=== PATIENT | female | born 2000 | race Two or more races ===

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

== ENCOUNTER 2019-10-07 21:35 | Observation (INO) | payer MEDICAID ==
[~2019-10-07] VITALS: Ht 154.9 cm; Wt 79.4 kg
[~2019-10-07 21:35] MED LIST: PREN-153 PO
[2019-10-08] MEDS ORDERED: BETAMETHASONE ACET (6MG/ML) 5ML VIAL IM SCH (10:00)
== END 2019-10-07 23:55 | disposition home or self-care (01) | DRG 955 ==
LOC: LDRP 21:35
PROVIDERS: ADMIT Specialist; ATTEND Specialist
DX: O09.212 Supervision of pregnancy with history of pre-term labor, second trimester (principal); Z3A.23 23 weeks gestation of pregnancy
CPT/HCPCS: 59025; 76805; 81002; 84112; G0378; 96361; 96366

== ENCOUNTER 2019-10-28 18:04 | Observation (INO) | payer MEDICAID ==
[~2019-10-28] VITALS: Ht 154.9 cm; Wt 83.9 kg
== END 2019-10-28 19:30 | disposition home or self-care (01) | DRG 566 ==
LOC: LDRP 18:04
PROVIDERS: ADMIT Obstetrics & Gynecology; ATTEND Obstetrics & Gynecology
DX: O99.89 Other specified diseases and conditions complicating pregnancy, childbirth and the puerperium (principal); M54.5 Low back pain; Z3A.36 36 weeks gestation of pregnancy; W10.9XXA Fall (on) (from) unspecified stairs and steps, initial encounter; Y92.009 Unspecified place in unspecified non-institutional (private) residence as the place of occurrence of the external cause
CPT/HCPCS: 59025; 76815; 81002; G0378

== ENCOUNTER 2019-11-13 21:01 | Emergency (ER) | payer MEDICAID ==
[~2019-11-13] VITALS: Ht 154.9 cm; Wt 83.9 kg
[2019-11-13] MEDS: ONDANSETRON ODT 4 MG TAB PO ONE (22:58)
[2019-11-13] MEDS: HYDROmorphone HCL 2 MG/ML VL IV ONE (22:59)
[2019-11-14] MEDS: ETOMIDATE (2MG/ML) 20ML VIAL IV ONE ×2 (00:53→01:05)
[2019-11-14 02:00] VITALS: BP 102/58
== END 2019-11-14 02:05 | disposition home or self-care (01) ==
LOC: ER 21:01 → EDBD 21:01 → ER 11-14 02:05
DX: O26.892 Other specified pregnancy related conditions, second trimester (principal); S43.005A Unspecified dislocation of left shoulder joint, initial encounter; Z3A.28 28 weeks gestation of pregnancy; X58.XXXA Exposure to other specified factors, initial encounter; Y93.89 Activity, other specified; Y92.89 Other specified places as the place of occurrence of the external cause; Y99.8 Other external cause status
CPT/HCPCS: 23650; 73030; 96374; 99152; 99153; 99285; J1170; Q0162

== ENCOUNTER 2019-12-01 08:31 | Observation (INO) | payer MEDICAID ==
[2019-12-01] MEDS ORDERED: HYDR250I6 IM (09:26)
== END 2019-12-01 10:35 | disposition home or self-care (01) | DRG 563 ==
LOC: LDRP 08:31
PROVIDERS: ADMIT Specialist; ATTEND Specialist
DX: O60.03 Preterm labor without delivery, third trimester (principal); Z3A.36 36 weeks gestation of pregnancy
CPT/HCPCS: 59025; 76815; 81002; G0378

== ENCOUNTER 2019-12-14 09:50 | Observation (INO) | payer MEDICAID ==
[~2019-12-14 09:50] MED LIST changes: +HYDR250I6 IM
== END 2019-12-14 10:35 | disposition home or self-care (01) | DRG 563 ==
LOC: LDRP 09:50
PROVIDERS: ADMIT Obstetrics & Gynecology; ATTEND Obstetrics & Gynecology
DX: O60.03 Preterm labor without delivery, third trimester (principal); Z3A.32 32 weeks gestation of pregnancy
CPT/HCPCS: 59025; 81002; G0378

== ENCOUNTER 2019-12-21 08:40 | Observation (INO) | payer MEDICAID ==
[2019-12-21 10:05] LABS: Alcohol, Urine < 3.0 mg/dL (0-5); Amphetamine Screen, Urine NEGATIVE (NEGATIVE); Barbiturate Scree,Urine NEGATIVE (NEGATIVE); Benzodiazephine Screen, Urine NEGATIVE (NEGATIVE); Cannabinoid Screen, Urine POSITIVE (NEGATIVE); Cocaine Screen, Urine NEGATIVE (NEGATIVE); Opiate Scree,Urine NEGATIVE (NEGATIVE); Phencyclidine Screen, Urine NEGATIVE (NEGATIVE)
== END 2019-12-21 09:40 | disposition home or self-care (01) | DRG 563 ==
LOC: LDRP 08:40
PROVIDERS: ADMIT Specialist; ATTEND Specialist
DX: O60.03 Preterm labor without delivery, third trimester (principal); Z3A.33 33 weeks gestation of pregnancy; Z91.040 Latex allergy status
CPT/HCPCS: 59025; 80307; 81002; G0378

== ENCOUNTER 2019-12-28 09:05 | Observation (INO) | payer MEDICAID | END 2019-12-28 09:50 | disposition home or self-care (01) | DRG 563 | LOC: LDRP 09:05 | PROVIDERS: ADMIT Obstetrics & Gynecology; ATTEND Obstetrics & Gynecology | DX: O60.03 Preterm labor without delivery, third trimester (principal); Z3A.34 34 weeks gestation of pregnancy; Z91.040 Latex allergy status | CPT/HCPCS: 59025; 81002; G0378 ==

== ENCOUNTER 2020-01-15 01:55 | Observation (INO) | payer MEDICAID ==
[~2020-01-15] VITALS: Ht 154.9 cm; Wt 68.0 kg
== END 2020-01-15 03:19 | disposition home or self-care (01) | DRG 566 ==
LOC: LDRP 01:55
PROVIDERS: ADMIT Specialist; ATTEND Specialist
DX: O62.9 Abnormality of forces of labor, unspecified (principal); Z3A.37 37 weeks gestation of pregnancy; Z91.040 Latex allergy status
CPT/HCPCS: 59025; 81002; 84112; G0378

== ENCOUNTER 2020-01-17 13:50 | Inpatient (IN) | payer MEDICAID ==
[~2020-01-17] VITALS: Ht 157.5 cm; Wt 90.3 kg
[2020-01-17] MEDS ORDERED: LACT. RINGERS/OXYTOCIN 20UNITS 1,000 ML IV SCH (14:29)
[2020-01-17] MEDS ORDERED: LACTATED RINGER'S 1,000 ML IV SCH (14:29)
[2020-01-17] MEDS ORDERED: PHISODERM TOP SOLN 240ML BTL TOP PRN (14:30)
[2020-01-17] MEDS ORDERED: LIDOCAINE 2%HCL (LOCAL ANESTH.) INJ 20ML MDV ID ONE (14:30)
[2020-01-17] MEDS ORDERED: NALBUPHINE HCL 10 MG/1ml INJECTION IV PRN (14:30)
[2020-01-17] MEDS ORDERED: DERMOPLAST 60ML BOTTLE TOP PRN (14:30)
[2020-01-17] MEDS ORDERED: WITCH HAZEL-GLYCERIN PAD TOP PRN (14:30)
[2020-01-17] MEDS ORDERED: BUTORPHANOL TARTRATE 2 MG/1 ML VIAL IV ONE (15:15)
[2020-01-17] MEDS ORDERED: PROMETHAZINE HCL 25 MG/ML 1ML IV PRN (15:15)
[2020-01-17 15:46] LABS: Basophils # (auto) 0 10 ^3/uL (0-0.2); Basophils % (auto) 0.2 % (0.0-2.0); Eosinophils # (auto) 0.1 10 ^3/uL (0-0.8); Eosinophils % (auto) 0.5 % (0.0-7.0); Hematocrit 39.2 % (36.0-46.0); Lymphocytes # (auto) 1.7 10 ^3/uL (0.4-5.4); Lymphocytes % (auto) 14.4 % (10.0-50.0); Mean Corpuscular Hemoglobin 27.7 pg (28.0-32.0); Mean Corpuscular Hgb Conc. 33.2 g/dL (32.0-36.0); Mean Corpuscular Volume 83.7 fL (80.0-100.0); Monocytes # (auto) 0.6 10 ^3/uL (0-1.3); Neutrophils # (auto) 9.2 10 ^3/uL (1.6-8.6); Neutrophils % (auto) 79.9 % (37.0-80.0); Platelet Count (auto) 219 10^3/uL (140-450); Red Blood Cells 4.69 10^6/uL (4.0-5.20); White Blood Cell 11.5 10^3/uL (4.4-10.8)
[2020-01-17 15:54] LABS: Urine Bacteria FEW /hpf (None Seen); Urine Blood Negative /uL (Negative); Urine Specific Gravity 1.009 (1.001-1.035); Urine WBC 12 /hpf (0 - 5)
[2020-01-17] MEDS ORDERED: METHYLERGONOVINE MALEATE 0.2 MG/ML AMP IM ONE (16:00)
[2020-01-17 16:01] LABS: Calcium 9.2 mg/dL (8.5-10.1); INR 0.92 (0.9-1.15); Partial Thromboplastin Time 26.3 sec (23.64-32.05); Potassium 3.8 mmol/L (3.5-5.1)
[2020-01-17 16:02] LABS: Alcohol, Urine < 3.0 mg/dL (0-5); Amphetamine Screen, Urine NEGATIVE (NEGATIVE); Barbiturate Scree,Urine NEGATIVE (NEGATIVE); Benzodiazephine Screen, Urine NEGATIVE (NEGATIVE); Cannabinoid Screen, Urine NEGATIVE (NEGATIVE); Cocaine Screen, Urine NEGATIVE (NEGATIVE); Opiate Scree,Urine NEGATIVE (NEGATIVE); Phencyclidine Screen, Urine NEGATIVE (NEGATIVE)
[2020-01-17 16:06] LABS: BUN/Creatinine Ratio 16.1; Bilirubin, Total 0.1 mg/dL (0.2-1.0); Total Protein 7.8 g/dL (6.4-8.2); Uric Acid 3.2 mg/dL (2.6-6.0)
--- NOTE | 2020-01-17 16:31 | NUR ---
Teaching: Reviewed information in [facility] booklet with patient. Discussed benefits of and risks associated with not . Discussed different positions, proper latch, feeding cues, and baby-led . Provided information of medication side effects related to . All questions and concerns addressed at this time. Patient verbalized understanding of information.
--- NOTE | 2020-01-17 18:10 | NUR ---
Ambulation: Patient OOB with standby assistance by RN. Patient ambulated to bathroom with steady gait. Patient able to void 700ml without difficulty. [facility] teaching provided with returned demonstration by patient. Clean gown provided and bed linen changed. Patient ambulated back to bed with steady gait and no distress noted.
[2020-01-17 19:08] VITALS: BP 116/74
[2020-01-17] MEDS: IBUPROFEN 600 MG TAB PO PRN (20:07)
[2020-01-17 23:14] VITALS: BP 111/69
[2020-01-18 03:13] VITALS: BP 99/46
[2020-01-18 07:00] VITALS: BP 94/51
[2020-01-18] MEDS: IBUPROFEN 600 MG TAB PO PRN (07:46)
[2020-01-18 10:35] VITALS: BP 109/55
[2020-01-18] MEDS: ACETAMINOPHEN 325 MG TAB PO PRN ×3 (10:46→22:28)
[2020-01-18 15:00] VITALS: BP 113/57
--- NOTE | 2020-01-18 15:07 | NUR ---
Received Social Service Consult for having a hx of Pos screens for THC. Neither Mom or baby was positive for drugs during the . The pt states she has not used drugs since high school and does not intend to use. Gave pt list of resources for Substance abuse.
[2020-01-18 18:30] VITALS: BP 113/56
[2020-01-18 23:00] VITALS: BP 113/64
[2020-01-19 03:00] VITALS: BP 114/60
[2020-01-19 05:07] LABS: RPR Non Reactive (Non Reactive)
[2020-01-19 07:00] VITALS: BP 96/55
--- NOTE | 2020-01-19 10:45 | NUR ---
Discharge: Discharge instructions given to mother of baby as ordered. Copies of and hearing screening, along with vaccination record given to mother. Mother encouraged to follow up with [facility] Researcher of choice and to give envelope with infants information to c unix developer at 1st office visit. All questions and concerns addressed. Mother of baby verbalized understanding and agreed to comply. Mother of baby encouraged to prepare for departure and notify RN ready to leave room for ID band removal/verification and car seat check.
--- NOTE | 2020-01-19 10:45 | NUR ---
Discharge: Discharge instructions given as ordered. Pt encouraged to follow up with PROCESS COACH as instructed. All questions and concerns addressed. Patient verbalized understanding. Medication reconciliation completed and copy given to patient. All required/requested vaccines given and copies of vaccinations given to patient. Patient encouraged to prepare to depart unit.
[2020-01-19 11:00] VITALS: BP 105/62
== END 2020-01-19 11:18 | disposition home or self-care (01) | DRG 560 ==
LOC: LDRP 13:50
PROVIDERS: ADMIT Obstetrics & Gynecology; ATTEND Obstetrics & Gynecology
PROC: 10E0XZZ Delivery of Products of Conception, External Approach (ICD-10-PCS; principal; 2020-01-17)
PROC: 0HQ9XZZ Repair Perineum Skin, External Approach (ICD-10-PCS; 2020-01-17)
DX: O71.82 Other specified trauma to perineum and vulva (principal); Z37.0 Single live birth; Z3A.37 37 weeks gestation of pregnancy
CPT/HCPCS: 36415; 59025; 59409; 80053; 80307; 81001; 84112; 84550; 85025; 85610; 85730; 86592; 86850; 86900; 86901; 96361; 96366; 96374; G0378; J2590

== ENCOUNTER → 2020-01-29 | Emergency (ER) | payer MEDICAID ==
[~2020-01-29] VITALS: Ht 154.9 cm; Wt 81.6 kg
[~2020-01-29] MED LIST changes: -HYDR250I6 IM; +KETOROLAC TROMETH 15 mg/ml 1ML VL IV ONE; +PROPOFOL 10 MG/ML 20 ML IV ONE; +PROPOFOL 100 ML IV ONE; +SODIUM CHLORIDE 0.9% 1,000 ML IV ONE
[2020-01-30 03:30] VITALS: BP 99/58
== END | disposition home or self-care (01) ==
LOC: EDUNIT# 23:09 → EDBD 23:20 → ER 23:26
DX: S43.005A Unspecified dislocation of left shoulder joint, initial encounter (principal); X58.XXXA Exposure to other specified factors, initial encounter; Y93.89 Activity, other specified; Y92.89 Other specified places as the place of occurrence of the external cause; Y99.8 Other external cause status
CPT/HCPCS: 23650; 73020; 96374; 99285; J7030; J2704

== ENCOUNTER 2021-07-10 17:20 | Emergency (ER) | payer MEDICAID ==
[~2021-07-10] VITALS: Ht 170.2 cm; Wt 81.6 kg
[~2021-07-10 17:20] MED LIST changes: -KETOROLAC TROMETH 15 mg/ml 1ML VL IV ONE; -PREN-153 PO; +PREN1TAB71 PO; -PROPOFOL 10 MG/ML 20 ML IV ONE; -PROPOFOL 100 ML IV ONE; -SODIUM CHLORIDE 0.9% 1,000 ML IV ONE
[2021-07-10] MEDS ORDERED: ETOMIDATE (2MG/ML) 20ML VIAL IV ONE (18:00)
[2021-07-10] MEDS ORDERED: MORPHINE SULFATE 4 MG/ML SYR/VIAL IV ONE (18:00)
[2021-07-10] MEDS ORDERED: ONDANSETRON HCL 4 MG/2 ML VIAL IV ONE (18:00)
[2021-07-10] MEDS ORDERED: SODIUM CHLORIDE 0.9% 1,000 ML IV ONE (20:00)
[2021-07-10 21:05] VITALS: BP 101/72
== END 2021-07-10 21:20 | disposition home or self-care (01) ==
LOC: ER 17:20 → EDBD 17:20 → ER 21:20
DX: S43.005A Unspecified dislocation of left shoulder joint, initial encounter (principal); Z79.899 Other long term (current) drug therapy; X50.9XXA Other and unspecified overexertion or strenuous movements or postures, initial encounter; Y93.84 Activity, sleeping; Y92.89 Other specified places as the place of occurrence of the external cause; Y99.8 Other external cause status
CPT/HCPCS: 23650; 73030; 96361; 96374; 96375; 99152; 99285; J2270; J2405

== ENCOUNTER 2024-05-06 13:39 | Emergency (ER) | payer MEDICAID ==
[~2024-05-06] VITALS: Ht 180.3 cm; Wt 72.7 kg
[2024-05-06 13:55] VITALS: PULSE 61; RESP 14; TEMP 97.9; O2SAT 97
[2024-05-06] MEDS: SODIUM CHLORIDE 0.9% 1,000 ML IV ONE (13:55)
[2024-05-06] MEDS: MORPHINE SULFATE 4 MG/ML SYR/VIAL IV ONE (13:59)
[2024-05-06] MEDS: ONDANSETRON HCL 4 MG/2 ML VIAL ONE (14:02)
[2024-05-06] MEDS: ONDANSETRON HCL 4 MG/2 ML VIAL IV ONE (14:02)
[2024-05-06] MEDS: PROPOFOL 10 MG/ML 20 ML IV ONE (14:02)
[2024-05-06 15:00] VITALS: BP 103/60; PULSE 68; RESP 12; O2SAT 98
== END 2024-05-06 20:03 | disposition admitted as inpatient to this hospital (09) ==
LOC: EDBD 13:39 → EDUNIT# 13:39 → ER 13:44
DX: S43.005A Unspecified dislocation of left shoulder joint, initial encounter (principal); F12.10 Cannabis abuse, uncomplicated; X58.XXXA Exposure to other specified factors, initial encounter; Y93.89 Activity, other specified; Y92.89 Other specified places as the place of occurrence of the external cause; Y99.8 Other external cause status
CPT/HCPCS: 23650; 73020; 96361; 96374; 96375; 99285; J2270; J2405; J2704; J7030

== ENCOUNTER 2025-02-18 10:26 | Emergency (ER) | payer MEDICAID, OTHER ==
[~2025-02-18] VITALS: Ht 154.9 cm; Wt 84.5 kg
[2025-02-18 11:22] VITALS: BP 102/65; PULSE 56; RESP 18; TEMP 97.9; O2SAT 99
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
[2025-02-18] MEDS: ACETAMINOPHEN 500 MG TAB or CAP PO ONE (11:37)
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
[2025-02-18] MEDS ORDERED: METH-1182 PO (12:17)
[2025-02-18] MEDS ORDERED: IBUP-1456 PO (12:17)
== END 2025-02-18 12:23 | disposition home or self-care (01) ==
LOC: ER 10:26
DX: S16.1XXA Strain of muscle, fascia and tendon at neck level, initial encounter (principal); S39.012A Strain of muscle, fascia and tendon of lower back, initial encounter; V49.88XA Car occupant (driver) (passenger) injured in other specified transport accidents, initial encounter; Y93.I9 Activity, other involving external motion; Y92.488 Other paved roadways as the place of occurrence of the external cause; Y99.8 Other external cause status
CPT/HCPCS: 72040; 72100

== ENCOUNTER 2025-02-26 18:10 | Emergency (ER) | payer MEDICAID, OTHER ==
[~2025-02-26] VITALS: Ht 154.9 cm; Wt 82.0 kg
[~2025-02-26 18:10] MED LIST changes: +IBUP-1456 PO; +METH-1182 PO
[2025-02-26 18:44] VITALS: BP 107/59; PULSE 78; RESP 16; O2SAT 98
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
[2025-02-26 18:51] VITALS: TEMP 98.9
[2025-02-26] MEDS: IBUPROFEN 600 MG TAB PO ONE (18:51)
[2025-02-26] MEDS ORDERED: CEPH500C PO (18:52)
[2025-02-26] MEDS: SILVER SULFADIAZINE 1 % TOPICAL CREAM 50GM TOP ONE (18:52)
[2025-02-26] MEDS ORDERED: SILV1CRE82 TOP (18:52)
[2025-02-26] MEDS ORDERED: IBUP-1454 PO (18:52)
== END 2025-02-26 19:05 | disposition home or self-care (01) ==
LOC: MERGE 18:10 → ER 18:10
DX: T24.202A Burn of second degree of unspecified site of left lower limb, except ankle and foot, initial encounter (principal); X58.XXXA Exposure to other specified factors, initial encounter; Y93.89 Activity, other specified; Y92.89 Other specified places as the place of occurrence of the external cause; Y99.8 Other external cause status
CPT/HCPCS: 16000